=== PATIENT | male | born 1935 | race Caucasian/White ===

== ENCOUNTER 2017-05-09 14:13 | Emergency (ER) | payer MEDICARE ==
[2017-05-09] MEDS ORDERED: Sodium Chloride 0.9% 10 ML Syringe FLUSH PRN (14:35)
[2017-05-09] MEDS ORDERED: Sodium Chloride 0.9% 2.5 ML Syringe FLUSH PRN (14:35)
--- NOTE | 2017-05-09 14:37 | EDM.PDOC ---
ED HPI GENERAL MEDICAL PROBLEM - General Chief Complaint: Abdominal Pain Stated Complaint: ABDOMINAL PAIN Time Seen by Provider: 05/09/17 14:36 Source of Information: Reports: Patient, Family History Limitations: Reports: No Limitations - History of Present Illness INITIAL COMMENTS - FREE TEXT/NARRATIVE: HISTORY AND PHYSICAL: []82-year-old male presenting with left upper quadrant pain History of Present Illness: [] Patient has had pain for the last 2 weeks normal weight is 186 today he is 83.6 kg is concerned that the patient has been forgetting things/memory is just not the same over the last [address] scan will be changed to no contrast as many years ago he had a anaphylactic reaction to contrast Patient states that he has not had bowel movement in 5 days Review of Systems: As per history of present illness and below otherwise all systems reviewed and negative. Past medical history: As per history of present illness and as reviewed below otherwise noncontributory. Surgical history: As per history of present illness and as reviewed below otherwise noncontributory. Social history: No reported history of drug or alcohol abuse. Family history: As per history of present illness and as reviewed below otherwise noncontributory. Physical exam: Alert and oriented gentleman somewhat hard of hearing, states he is having difficulty remembering, answering questions appropriately in full sentences HEENT: Atraumatic, normocehpalic, pupils reactive, negative for conjunctival pallor or scleral icterus, mucous membranes moist, throat clear, neck supple, nontender, trachea midline. Lungs: Clear to auscultation, breath sounds equal bilaterally, chest non tender. Heart: S1S2, regular, negative for clicks, rubs, or JVD. Abdomen: Soft, nondistended, nontender to left upper quadrant. Negative for masses or hepatossplenmegaly. Negative for costovertebral tenderness. Pelvis: Stable nontender. Genitourinary: Deferred. Rectal: Deferred Extremities: Atraumatic, negative for cords or calf pain. Neurovascular unremarkable. Neuro: Awake, alert, oriented. Cranial nerves II through XII unremarkable. Cerebellum unremarkable. Motor and sensory unremarkable throughout. Exam nonfocal. Small kidney stone that is unremarkable Diagnostics: [CBC CMP amylase lipase UA CT abdomen and pelvis with contrast] Therapeutics: [] Impression: [Constipation] Plan: [] Increase MiraLAX to 3 capfuls May need enemas at home If not improving having bowel movement he needs to return for further evaluation Refer to Dr. Burak Meraz per the request [facility] - [facility] Professional Building [address] [place] [address], [address] [place] [address] Definitive disposition and diagnosis as appropriate pending reevaluation and review of above. Onset: Gradual Duration: Week(s): (2), Getting Worse Location: Reports: Abdomen Quality: Reports: Ache, Stabbing Severity: Moderate Improves with: Reports: Rest Worsens with: Reports: Eating under left rib cage Pain Score (Numeric/FACES): 7 - Related Data Allergies Allergy/AdvReac Type Severity Reaction Status Date / Time diphenhydramine Allergy Muscle Verified 05/09/17 14:25 [From Benadryl] Aches Past Medical History Cardiovascular History: Reports: Arrhythmia Genitourinary History: Reports: Prostate Disorder Musculoskeletal History: Reports: Back Pain, Chronic Psychiatric History: Reports: Anxiety, Depression Oncologic (Cancer) History: Reports: Leukemia - Past Surgical History Cardiovascular Surgical History: Reports: Cardiac Ablation, Pacer Male Surgical History: Reports: Other (See Below) Other Male Surgeries/Procedures: prostate Musculoskeletal Surgical History: Reports: Knee Replacement, Shoulder Replacement, Other (See Below) Other Musculoskeletal Surgeries/Procedures:: 9 back surgeries Social & Family History - Family History Family Medical History: Noncontributory - Tobacco Use Smoking Status *Q: Never Smoker Second Hand Smoke Exposure: No - Caffeine Use Caffeine Use: Reports: Coffee - Recreational Drug Use Recreational Drug Use: No ED ROS GENERAL - Review of Systems Review Of Systems: ROS reveals no pertinent complaints other than HPI. ED EXAM, GI/ABD - Physical Exam Exam: See Below (See dictation) Course - Vital Signs Last Recorded V/S: Last Vital Signs Temp 35.9 C 05/09/17 14:20 Pulse 78 05/09/17 14:20 Resp 18 05/09/17 14:20 BP 127/66 05/09/17 14:20 Pulse Ox 92 L 05/09/17 14:20 - Orders/Labs/Meds Orders: Active Orders 24 hr Category Date Time Status Sodium Chloride 0.9% [Saline Flush] Med 05/09/17 14:35 Active 10 ml FLUSH ASDIRECTED PRN Sodium Chloride 0.9% [Saline Flush] Med 05/09/17 14:35 Active 2.5 ml FLUSH ASDIRECTED PRN Saline Lock Insert [OM.PC] Stat Oth 05/09/17 14:35 Ordered Medication Orders Sodium Chloride (Saline Flush) 10 ml FLUSH ASDIRECTED PRN PRN Reason: Keep Vein Open Sodium Chloride (Saline Flush) 2.5 ml FLUSH ASDIRECTED PRN PRN Reason: Keep Vein Open Labs: Laboratory Tests 05/09/17 05/09/17 05/09/17 Range/Units 14:45 14:45 15:17 WBC 7.86 (4.0-11.0) K/uL RBC 5.43 (4.50-5.90) M/uL Hgb 14.9 (13.0-17.0) g/dL Hct 45.3 (38.0-50.0) % MCV 83.4 (80.0-98.0) fL MCH 27.4 (27.0-32.0) pg MCHC 32.9 (31.0-37.0) g/dL RDW Std Deviation 56.5 (28.0-62.0) fl RDW Coeff of Rogelio 19 H (11.0-15.0) % Plt Count 84 L (150-400) K/uL Add Manual Diff YES Neutrophils % (Manual) 36 L (48.0-80.0) % Band Neutrophils % 4 % Lymphocytes % (Manual) 31 (16.0-40.0) % Atypical Lymphs % 10 Monocytes % (Manual) 16 H (0.0-15.0) % Eosinophils % (Manual) 1 (0.0-7.0) % Basophils % (Manual) 2 H (0.0-1.5) % Nucleated RBC % 0.0 /100WBC Absolute Seg Neuts 2.8 Band Neutrophils # 0.3 Lymphocytes # (Manual) 2.4 Monocytes # (Manual) 1.3 Eosinophils # (Manual) 0.1 Basophils # (Manual) 0 Nucleated RBCs # 0 K/uL Sodium 138 (136-146) mmol/L Potassium 4.7 (3.5-5.1) mmol/L Chloride 104 (98-110) mmol/L Carbon Dioxide 25 (21-31) mmol/L BUN 25 H (6.0-23.0) mg/dL Creatinine 1.1 (0.6-1.5) mg/dL Est Cr Clr Drug Dosing 47.57 mL/min Estimated GFR (MDRD) > 60.0 ml/min Glucose 98 (60-110) mg/dL Calcium 9.4 (8.8-10.8) mg/dL Total Bilirubin 1.3 (0.1-1.5) mg/dL AST 22 (5-40) IU/L ALT 23 (8-54) IU/L Alkaline Phosphatase 62 (40-150) Total Protein 7.2 (6.0-8.0) g/dL Albumin 4.4 (3.4-4.8) g/dL Globulin 2.8 (2.0-3.5) g/dL Albumin/Globulin Ratio 1.6 (1.3-2.8) Amylase 29 (10-90) U/L Lipase < 8 (7-80) U/L Urine Color YELLOW Urine Appearance SLT CLOUDY Urine pH 6.5 (5.0-8.0) Ur Specific [place] 1.015 (1.001-1.035) Urine Protein NEGATIVE (NEGATIVE) mg/dL Urine Glucose (UA) NEGATIVE (NEGATIVE) mg/dL Urine Ketones TRACE H (NEGATIVE) mg/dL Urine Occult Blood SMALL H (NEGATIVE) Urine Nitrite NEGATIVE (NEGATIVE) Urine Bilirubin NEGATIVE (NEGATIVE) Urine Urobilinogen 0.2 (<2.0) EU/dL Ur Leukocyte Esterase NEGATIVE (NEGATIVE) Urine RBC 0-2 (0-2/HPF) Urine WBC 0-1 (0-5/HPF) Ur Epithelial Cells RARE (NONE-FEW) Amorphous Sediment FEW (NEGATIVE) Urine Bacteria FEW (NEGATIVE) Meds: Medications Generic Name Dose Route Start Last Admin Trade Name Freq PRN Reason Stop Dose Admin Sodium Chloride 10 ml 05/09/17 14:35 Saline Flush FLUSH ASDIRECTED PRN Keep Vein Open Sodium Chloride 2.5 ml 05/09/17 14:35 Saline Flush FLUSH ASDIRECTED PRN Keep Vein Open Departure - Departure Time of Disposition: 16:40 Disposition: Home, Self-Care 01 Condition: Good Clinical Impression: Abdominal pain Qualifiers: Abdominal location: left upper quadrant Qualified Code(s): R10.12 - Left upper quadrant pain Constipation Qualifiers: Constipation type: other constipation type Qualified Code(s): K59.09 - Other constipation - Discharge Information Referrals: PCP,None [Primary Care Provider] - Burak Meraz MD [Physician] - Forms: ED Department Discharge Additional Instructions: The following information is given to patients seen in the emergency department who are being discharged to home. This information is to outline your options for follow-up care. We provide all patients seen in our emergency department with a follow-up referral. The need for follow-up, as well as the timing and circumstances, are variable depending upon the specifics of your emergency department visit. If you don't have a primary care physician on staff, we will provide you with a referral. We always advise you to contact your personal physician following an emergency department visit to inform them of the circumstance of the visit and for follow-up with them and/or the need for any referrals to a consulting specialist. The emergency department will also refer you to a specialist when appropriate. This referral assures that you have the opportunity for followup care with a specialist. All of these measure are taken in an effort to provide you with optimal care, which includes your followup. Under all circumstances we always encourage you to contact your private physician who remains a resource for coordinating your care. When calling for followup care, please make the office aware that this follow-up is from your recent emergency room visit. If for any reason you are refused follow-up, please contact the [facility] emergency department at and asked to speak to the emergency department charge nurse. Increasing MiraLAX daily If not improving and stooling have duplex suppository or enema Worsening of symptoms return to ER referral would be made to Dr. Burak Meraz per your request [facility] - General Surgery Professional Building [address] [place] [address], [address] [place] [address] - My Orders Last 24 Hours: My Active Orders 05/09/17 14:35 Sodium Chloride 0.9% [Saline Flush] 10 ml FLUSH ASDIRECTED PRN Sodium Chloride 0.9% [Saline Flush] 2.5 ml FLUSH ASDIRECTED PRN Saline Lock Insert [OM.PC] Stat - Assessment/Plan Last 24 Hours: My Active Orders 05/09/17 14:35 Sodium Chloride 0.9% [Saline Flush] 10 ml FLUSH ASDIRECTED PRN Sodium Chloride 0.9% [Saline Flush] 2.5 ml FLUSH ASDIRECTED PRN Saline Lock Insert [OM.PC] Stat
[2017-05-09 15:15] LABS: CHLORIDE,CL 104 mmol/L (98-110); SODIUM,NA 138 mmol/L (136-146)
--- NOTE | 2017-05-09 15:55 | CT ---
EXAMINATION: Non contrast CT head. Coronal and sagittal reformats. HISTORY: Pain FINDINGS: No evidence of intra or extra axial hemorrhage, mass, midline shift, hydrocephalus or edema. There is moderate generalized atrophy. No hypoattenuation changes in the major vascular territories to suggest acute infarct. No abnormal intracranial calcifications are detected. No evidence of substantial vascular calcifica tions. Paranasal sinuses and mastoid air cells are well aerated without substantial findings. Moderate lef tward deviation of the nasal septum. Pituitary fossa appears unremarkable. The orbits and globes are symmetric. Calvarium is intact. No evidence of skull fracture. IMPRESSION: 1. No acute intracranial findings. 2. Moderate generalized atrophy.
--- NOTE | 2017-05-09 16:22 | CT ---
CT of the abdomen and pelvis without contrast. HISTORY: Pain TECHNIQUE: Axial CT images were obtained of the abdomen and pelvis without contrast. Coronal and sag ittal reconstructions obtained. FINDINGS: Calcified granulomas noted within the lung bases. Mild scarring and atelectasis also noted. No pleur al effusion. Coronary artery calcifications are present. The liver, spleen, adrenal glands, and pancreas appear unremarkable for noncontrast examination. The gallbladder is mildly distended, otherwise unremarkable. There is no bulky retroperitoneal lymphade nopathy. No abdominal ascites. There is a laminated calcification within the left renal hilum, possibly a aneurysm, measuring 11 mm . There is a nonobstructing 3 mm stone within the upper pole of the left kidney. Renal cortical cyst s are noted bilaterally. No evidence of obstructive uropathy. The large and small bowel are normal in caliber without evidence of obstruction. Moderate diverticul osis without evidence of diverticulitis. No pericolonic or pericecal inflammation or stranding. Ther e is no bulky pelvic lymphadenopathy. No free fluid. No free air. The urinary bladder appears normal . Extensive postsurgical changes and bilateral fusion hardware noted extending from T9 to the pelvis. No acute osseous abnormality demonstrated. IMPRESSION: 1. No acute findings demonstrated within the abdomen or pelvis. 2. Moderate diverticulosis without evidence of diverticulitis. 3. The gallbladder appears distended, otherwise unremarkable. 4. Nonobstructing left nephrolithiasis. 5. 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 6. Extensive degenerative changes and postoperative changes noted within the thoracolumbar spine.
[2017-05-09 17:22] VITALS: BP 130/72
== END 2017-05-09 17:12 | disposition home or self-care (01) ==
LOC: MW.ED 14:13
DX: R10.12 Left upper quadrant pain (principal); K59.09 Other constipation; I49.9 Cardiac arrhythmia, unspecified; F41.8 Other specified anxiety disorders; C95.90 Leukemia, unspecified not having achieved remission; Z88.8 Allergy status to other drugs, medicaments and biological substances
CPT/HCPCS: 36415; 70450; 70450-26; 74176; 74176-26; 80053; 81001; 82150; 83690; 85025; 99282; 99284-25